=== PATIENT | female | born 1950 | race Caucasian/White ===

== ENCOUNTER → 2020-07-08 06:21 | Outpatient (CLI) | payer MEDICARE, OTHER, SELFPAY ==
[2020-07-08 07:40] LABS: ALB/GLOB Ratio 1.1 RATIO (0.9-2.4); AST(SGOT) 29 U/L (15-37); Alanine Aminotransfer ALT/SGPT 31 U/L (13-56); Albumin, Serum 3.9 g/dL (3.2-5.0); Alkaline Phosphatase 50 U/L (45-117); Anion Gap 6 (5-15); BUN 14 mg/dL (7-18); BUN/Creat Ratio 16.1 RATIO (10-20); Chloride 102 mmol/L (98-107); Creatinine, Serum 0.87 mg/dL (0.55-1.02); EST Glomerular Filtration Rate 68 mL/min (>60); Est Glom Filt Rate - Afr Amer 83 mL/min (>60); Globulin 3.6 g/dL (2.2-4.2); Glucose 120 mg/dL (74-106); Potassium 3.7 mmol/L (3.5-5.1); Protein, Total 7.5 g/dL (6.4-8.2); Sodium Level 140 mmol/L (136-145)
== END ==
DX: C50.919 Malignant neoplasm of unspecified site of unspecified female breast (principal)
CPT/HCPCS: 36415; 80053

== ENCOUNTER → 2020-10-06 12:40 | Outpatient (CLI) | payer MEDICARE, OTHER, SELFPAY ==
--- NOTE | 2020-10-06 12:44 | BI_ITS ---
MAMMOGRAPHY - UNILATERAL SCREENING: LEFT BREAST REASON FOR EXAM: Female, 70 years old. Routine annual screening examination (unilateral). PERTINENT HISTORY: Personal history of breast cancer with right mastectomy. TECHNIQUE: Digital examination. Mediolateral oblique (MLO) and craniocaudad (CC) views of the breast were obtained. CAD: COMPARISON: 03/16/2020 FINDINGS: Breast Composition: There are scattered areas of fibroglandular density. There are no dominant masses or suspicious calcifications. Stable benign-appearing calcifications in the left breast No other significant abnormalities are identified. There has been no significant change since the prior study. BI/SCREEN MAMM (CAD) W/RODRÍGUEZ UNI L IMPRESSION: Stable bilateral screening mammogram. ASSESSMENT CATEGORY: BIRADS Category 2: Benign. A letter regarding these results will be sent to the patient by the facility within 30 days. FOLLOW UP RECOMMENDATION: Yearly follow up mammogram recommended. (A) [id number] Approximately 10% of breast cancers are not detected by mammography. A normal mammogram should not delay biopsy of a clinically suspicious abnormality. [id number] Electronically Signed: Josse Sharma MD at 13:51 EDT , Service support ,
--- NOTE | 2020-10-06 12:56 | BD_ITS ---
STUDY: DUAL ENERGY X-RAY ABSORPTIOMETRY / DXA REASON FOR EXAM: Female, 70 years old. [id number]. The patient is postmenopausal. Loss of height. TECHNIQUE: Bone Mineral Density (BMD) measurements of lumbar spine and bilateral hips were obtained. COMPARISON: None. FINDINGS: Lumbar Spine (L1-L4): g/cm2 (1.150) / T-score (-0.2) / Z-score (1.4) Findings are suggestive of normal bone density with a low fracture risk. Left Femur Total: g/cm2 (0.814) / T-score (-1.5) / Z-score (-0.1) Left Femoral Neck: g/cm2 (0.724) / T-score (-2.3) / Z-score (-0.6) Right Femur Total: g/cm2 (0.813) / T-score (-1.5) / Z-score (-0.1) Right Femoral Neck: g/cm2 (0.769) / T-score (-1.9) / Z-score (-0.2) BD/Dexa Bone Density Study IMPRESSION: The patient is considered osteopenic as outlined below according to World [employer] Organization (WHO) criteria with a high fracture risk. Reference Information: The T-score is the number of standard deviations above or below the standard which is normal for young adults at their peak bone mineral density. The World Health Organization (WHO) interprets the T-scores as follows: Above -1 Normal bone density Between -1 and -2.5 Osteopenia Equal to / or below -2.5 Osteoporosis As a practical clinical guideline, osteopenia may be graded as follows: Mild -1 through -1.5 Moderate -1.6 through -2.0 Severe -2.1 through -2.4 The Z-score is the number of standard deviations above or below age-matched controls. A Z-score of less than -1.5 would be considered abnormal. References: 1. NIH Osteoporosis and Related Bone Diseases www osteo.org 2. International Society for Clinical Densitometry www iscd.org 3. National Osteoporosis Foundation www nof.org Electronically Signed: Bj Howard MD at 12:41 EDT , Service support ,
== END ==
PROVIDERS: PCP Internal Medicine; Referring Provider Internal Medicine; Visit Provider Internal Medicine
DX: Z78.0 Asymptomatic menopausal state (principal); Z12.31 Encounter for screening mammogram for malignant neoplasm of breast; Z85.3 Personal history of malignant neoplasm of breast
CPT/HCPCS: 77063; 77067; 77080

== ENCOUNTER 2021-01-11 22:26 | Emergency (ER) | payer MEDICARE, OTHER, SELFPAY ==
[2021-01-11 22:27] VITALS: BP 143/95; PULSE 60; RESP 18; TEMP 36.6; O2SAT 95; BMI 36.6
--- NOTE | 2021-01-11 22:45 | EX.ED.DYSGE1 ---
HPI History of Present Illness Chief Complaint: Rash Informant: patient and spouse/S.O. Narrative Narrative: 70-year-old female presents to emergency room with a rash. Patient states that last Monday (7 days ago) she was weed whacking and by Monday she had blistery itchy rash on legs and arm chest and neck. She has tried some topical hydrocortisone, topical Benadryl, antiitch spray and nothing seems to be helping her itching. She has been using alcohol baths. PFSH PFSH Allergy/AdvReac Type Severity Reaction Status Date / Time carboplatin Allergy Anaphylaxis Verified 01/11/21 22:30 aspirin AdvReac Other Verified 01/11/21 22:30 NSAIDS (Non-Steroidal AdvReac Other Verified 01/11/21 22:30 Anti-Inflamma PAPER TAPE AdvReac Other Uncoded 01/11/21 22:30 Social History (Updated 01/11/21 @ 22:[address] James Cuadra, DO) Smoking Status: Former smoker substance use type: does not use ROS ROS ED Constitutional Constitutional ED: Denies chills or weight loss Eyes Eyes: Denies change in vision or diplopia ENT ENT ED: Denies ear pain, rhinorrhea or sore throat Cardiovascular Cardiovascular: Denies chest pain, orthopnea, palpitations or racing heartbeat Respiratory/Chest Respiratory/Chest: Denies cough, dyspnea or orthopnea Gastrointestinal Gastrointestinal: Denies abdominal pain, diarrhea, nausea or vomiting Genitourinary Genitourinary ED: Denies dysuria, hematuria or urinary frequency Musculoskeletal Musculoskeletal: Denies arthralgias or myalgias Integumentary Reports rash; Denies abscess Neurologic Neurologic: Denies headache(s) or weakness Psychiatric Psychiatric: Denies anxiety, depression, suicidal ideation or suicidal thoughts Endocrine Endocrinology: Denies polydipsia, polyphagia or polyuria Allergic/Immunologic Allergic/Immunologic ED: Denies mouth swelling, tongue swelling or urticaria EXAM Physical Exam Const Vital Signs: 01/11/21 22:27 Temperature 97.9 F Temperature Source Temporal Pulse Rate 60 Respiratory Rate 18 Blood Pressure 143/95 H Blood Pressure Mean 111 Pulse Ox 95 Oxygen Delivery Method Room Air Positive well nourished and well developed General Appearance ED: well developed HEENT Reports normocephalic, head/scalp atraumatic and moist mucous membranes Eyes PERRL and EOMs intact bilaterally Neck no lymphadenopathy, supple and no JVD Resp normal respiratory effort and clear to auscultation bilaterally Cardio regular rate, regular rhythm and no murmurs GI normal to inspection, nondistended, normoactive bowel sounds and non-tender Palpation: soft Back/Spine no CVA tenderness and normal ROM Extremity normal to inspection General Extremety ED: Negative for edema General Extremity: Negative for edema Neuro oriented x3 and CN's II-XII intact bilaterally Sensorium / Orientation: alert Motor Exam: strength 5/5 throughout Psych mental status grossly normal Mood & Affect: Negative for depressed or tearful Skin no wounds Skin Narrative: Patient has a blistery raised red rash over the lower extremities patchy areas on the arms neck and torso that seems to be consistent with a contact dermatitis MDM MDM MDM Narrative Medical decision making narrative: Patient will receive an IM dose of Kenalog. She also received Benadryl and recommend continued Benadryl. As this is already day 8 I do not think she will need additional oral steroids. Return if worsening or concerns. Discharge Plan Triage Chief Complaint: Rash ED Provider: James Cuadra Dx/Rx/DC Orders Clinical Impression: Contact dermatitis Instructions: ED Contact Dermatitis Primary Care Provider: Juana Villatoro Referrals: Juana Villatoro DO [Primary Care Provider] - As Needed Activity Restrictions/Additional Instructions: Benadryl 25 mg every 6-8 hours depending on how tired you feel on it. Calamine lotion is worth a try to see if it helps you. Disposition Disposition: Home, Self Care
[2021-01-11] MEDS: Triamcinolone Acetonide 40 MG/ML Vial 80 MG IM (22:51)
[2021-01-11] MEDS: DiphenhydrAMINE 25 MG Capsule 50 MG PO (22:52)
== END 2021-01-11 23:04 | disposition home or self-care (01) ==
LOC: ED 22:49
PROVIDERS: Emergency Provider Emergency Medicine; PCP Internal Medicine
DX: L25.9 Unspecified contact dermatitis, unspecified cause (principal); Z87.891 Personal history of nicotine dependence
CPT/HCPCS: 96372; 99284

== ENCOUNTER → 2021-06-07 14:56 | Outpatient (CLI) | payer MEDICARE, OTHER, SELFPAY ==
[2021-06-07 15:37] LABS: International Normalized Ratio 1.5; Prothrombin Time (Protime)PT. 17.2 SECONDS (11.7-14.9)
== END ==
PROVIDERS: PCP Internal Medicine; Visit Provider Internal Medicine
DX: R79.1 Abnormal coagulation profile (principal)
CPT/HCPCS: 85610

== ENCOUNTER → 2021-06-11 06:52 | Outpatient (CLI) | payer MEDICARE, OTHER, SELFPAY ==
--- NOTE | 2021-06-11 06:55 | US_ITS ---
EXAM: US ABDOMEN LIMITED CLINICAL INDICATION: SPLENOMEGALY TECHNIQUE: Real-time ultrasound of the abdomen with image documentation. This report was created using [employer] report generation technology. COMPARISON: None. FINDINGS: KIDNEYS: Visualized left kidney is unremarkable without demonstrated hydronephrosis. The left kidney measures 11.3 x 5.4 x 5.5 cm. SPLEEN: The spleen measures 12.0 x 5.2 x 3.7 cm. No splenic masses. No perisplenic fluid collections. US/Spleen IMPRESSION: Top normal spleen size. No splenic mass. Electronically Signed: Tim Rojas MD ([place]) at 7:55 EST , Service support ,
== END ==
PROVIDERS: PCP Internal Medicine; Referring Provider Internal Medicine; Visit Provider Internal Medicine
DX: R16.1 Splenomegaly, not elsewhere classified (principal)
CPT/HCPCS: 76705

== ENCOUNTER → 2021-11-08 | Outpatient (CLI) | payer MEDICARE, OTHER, SELFPAY ==
--- NOTE | 2021-11-08 07:29 | BI_ITS ---
MAMMOGRAPHY - UNILATERAL SCREENING: LEFT BREAST REASON FOR EXAM: Female, 71 years old. Routine annual screening examination (unilateral). PERTINENT HISTORY: Personal history of breast cancer. Prior right mastectomy. TECHNIQUE: Digital unilateral breast rodríguez (3D mammographic acquisition) in the CC and MLO projections. 2-D mediolateral oblique (MLO) and craniocaudad (CC) views of both breasts were obtained. CAD: Full Field Digital Mammography with Computer Added Detection was performed. COMPARISON: Comparison is made with prior study dated 10/06/2020. FINDINGS: Breast Composition: There are scattered areas of fibroglandular density. There are no dominant masses or suspicious calcifications. Stable benign-appearing calcifications in the left breast. No other significant abnormalities are identified. There has been no significant change since the prior study. BI/SCREEN MAMM (CAD) W/RODRÍGUEZ UNI L IMPRESSION: Stable unilateral screening mammogram. Yearly follow-up mammogram recommended. (A) ASSESSMENT CATEGORY: BIRADS Category 2: Benign. A letter regarding these results will be sent to the patient by the facility within 30 days. Approximately 10% of breast cancers are not detected by mammography. A normal mammogram should not delay biopsy of a clinically suspicious abnormality. [id number] Electronically Signed: Bj Howard MD at 9:06 EDT ,
== END | disposition home or self-care (01) ==
LOC: OPBI 07:28
PROVIDERS: PCP Internal Medicine; Visit Provider Internal Medicine
DX: Z12.31 Encounter for screening mammogram for malignant neoplasm of breast (principal)
CPT/HCPCS: 77063; 77067

== ENCOUNTER → 2022-02-09 | Outpatient (CLI) | payer MEDICARE, OTHER, SELFPAY ==
--- NOTE | 2022-02-09 11:42 | RAD_ITS ---
HISTORY: PAIN. TECHNIQUE: XR Hip Unilateral with Pelvis when performed; 2-3 Views. COMPARISON: None. FINDINGS: OSSEOUS STRUCTURES: No acute displaced fracture identified. Note that overlapping bowel shadows may obscure osseous detail. Mineralization unremarkable. JOINT SPACES: No dislocation. Mild degenerative changes. SOFT TISSUES: Moderate stool in the colon. . RAD/HIP, UNI W/ Pelvis 2-3 Views IMPRESSION: No acute displaced fracture or dislocation identified. Electronically Signed: Charlene Nascimento MD at 15:18 EDT ,
== END | disposition home or self-care (01) ==
PROVIDERS: PCP Internal Medicine
DX: M25.551 Pain in right hip (principal); D05.11 Intraductal carcinoma in situ of right breast
CPT/HCPCS: 73502

== ENCOUNTER → 2022-02-28 | Outpatient (CLI) | payer MEDICARE, OTHER, SELFPAY ==
--- NOTE | 2022-02-28 09:18 | RAD_ITS ---
STUDY: X-RAY - ESOPHAGUS (BARIUM SWALLOW) WITH FLUOROSCOPY REASON FOR EXAM: Female, 71 years old. DYSPHAGIA TECHNIQUE: 14 view(s) of the esophagus were obtained following swallowing of barium. FLUOROSCOPY TIME (if supplied): (25) minutes/seconds COMPARISON: None. FINDINGS: There is no demonstrated esophageal foreign body. There is no demonstrated stricture or mucosal abnormality. Normal gastroesophageal junction, without a demonstrated hiatal hernia. The patient ingested a 12 mm tablet of barium without any difficulty. There is atherosclerotic tortuosity of the aortic arch and descending thoracic aorta. Normal visualized pulmonary parenchyma. Normal visualized osseous structures of the thorax. RAD/Esophagus Single Contrast IMPRESSION: Normal plain film x-ray examination (barium swallow) of the esophagus. Electronically Signed: Bj Howard MD at 9:56 EDT ,
== END | disposition home or self-care (01) ==
LOC: RAD 09:10
PROVIDERS: PCP Internal Medicine; Referring Provider Internal Medicine; Visit Provider Internal Medicine
DX: R13.10 Dysphagia, unspecified (principal)
CPT/HCPCS: 74220

== ENCOUNTER 2022-03-15 07:30 | Outpatient (RCR) | payer MEDICARE, OTHER, SELFPAY ==
--- NOTE | 2022-02-25 10:00 | HP.PTEVAL_ITS ---
Patient's Visit Information PAM CURRY is a 71 year old F referred to Physical Therapy by Dr. Juana Villatoro DO with a diagnosis of Piriformis syndrome/sciatica. Date of Evaluation: 02/25/22 Physical Therapist: RUPA Carson - Visit Plan Frequency: 1x/Week Duration: 3 Weeks Plan: 1X/ week for 3 weeks for strengthening of B ankles, stretching of R IT BAND and Piriformis, neutral spine core stability, foam rolling if needed with HEP. HEP: standing heel and toe raises, Bridges, seated piriformis stretch - Subjective Pt has pain in R hip and radiates down the back of the leg and the side and when she walks her R ankle will give out. Sit to stand sometimes it takes a minute to get her feet under her before she walks cause it will give out. She walks 2- 4 miles a day and takes move free to help with her moving better and takes Arthritis Tylenol when it is painful and does not use that everyday. She has no N&T. She has osteopenia in her pelvic bone and on a cancer med that is hard on her bones due to masectomy... She can not sleep on her R side. Steps: she can but it fatigues quick. In the afternoon she is going up one step at a time but can recip when not in a lot of pain. She had an X-ray that showed mild arthritis in the R hip. She has no back pain. The longer she walks the better she is. Sit to stand: no pain with doing that. If she sits a long time she stands and then pain comes on and has to stand a little to make the pain subside and then she can walk. She can sit as long as she wants. In the Winter she sits and quilts 6-7 hours and it has steadily gotten worse since the winter. - Pain R hip pain Pain Intensity (Out of 10): 1 R buttock pain Pain Intensity (Out of 10): 2 - Objective Gait: Walks with decrease stance time on the R LE. Pt is able to walk on heels and toes but feel the weakness and slight pain in the R ankle. Trunk AROM: flex 100%. Ext 50%, SB L (increase pain) 50%, SB R 50%, Rot B 25%. Patella DTR's 2+/3. LE MMT: R hip flex 10.8# and L hip flex 12.4#. R knee ext 17.3# and L knee ext 18.8#. R knee flex 15# and L knee flex 14.1#. R hip abd 12.5# L hip abd 12.5#. DF R 17.3# and L 23.1#. Increase pain with piriformis stretch on the R into the buttocks and the L-spine on the R side. No pain on the L side. IT Band was tight on the R and could not test the L cause the patient could not lay on the R side long. +SLR on the R .... after piriformis stretching on the R 30 sec X 4 her R SLR was negative for pain just stretching. - Balance/Special Test Scores Oswestry Low Back Score: 7 - Rehabilitation Potential Rehabilitation Potential: Good - Anticipated Interventions Patient/Client Instruction: Educate patient on: Condition, Plan of Care For the Purpose of:: To decrease pain, To decrease swelling/inflammation, To increase ROM, To improve nutrient delivery to tissue, To improve muscle performance and motor function, To improve ability to perform ADL's, To increase tolerance to activity/condition/position, To improve performance and independence with ADL's, To improve ability of physical actions for home/community/work/leisure, To improve gait and locomotor functions, To improve health of tissue, To decrease soft tissue restriction, To increase flexibility/ROM Therapeutic Exercise to Include: Strength training, Endurance training, Balance training, Coordination, Body mechanics, Postural training, Flexibilty training, Gait and locomotor training, Neuromotor development, Passive ROM, Active ROM, Dynamic Lumbar Stabilization For the Purpose of:: To decrease pain, To increase ROM, To improve nutrient delivery to tissue, To increase oxygenation perfusion, To improve muscle performance and motor function, To improve ability to perform ADL's, To increase tolerance to activity/condition/position, To improve performance and independence with ADL's, To decrease level of supervision to perform tasks, To improve ability of physical actions for home/community/work/leisure, To improve gait and locomotor functions, To improve health of tissue, To decrease soft tissue restriction, To increase flexibility/ROM, To improve balance Manual Therapy Techniques to Include: Passive ROM, Soft tissue mobilization For the Purpose of:: To decrease swelling/inflammation, To increase ROM, To improve nutrient delivery to tissue, To improve muscle performance and motor function Cryotherapy (ice pack, ice massage): Yes Thermo therapy (hot pack): Yes Ultrasound (thermal/non thermal): Yes For the Purpose of:: To decrease pain, To increase ROM, To improve nutrient delivery to tissue, To increase oxygenation perfusion, To improve muscle performance and motor function, To improve ability to perform ADL's Thank you for the opportunity to evaluate your patient. For Medicare and Medicare HMO plans, please review the plan of care and approve it. It will need to be FAXED BACK to us at [phone] for Medicare purposes. For Medicare only, by signing this I certify the plan of care. Please let me know if there are questions or concerns regarding this plan of care. Physician Signature: Date:
--- NOTE | 2022-03-15 07:58 | HP.PTEVAL_ITS ---
Patient's Visit Information PAM CURRY is a 71 year old F referred to Physical Therapy by Dr. Juana Villatoro DO with a diagnosis of Piriformis syndrome/sciatica. Date of Evaluation: 02/25/22 Physical Therapist: RUPA Carson - Visit Plan Frequency: 1x/Week Duration: 3 Weeks Plan: DC PT to HEP - Subjective Pt has pain in R hip and radiates down the back of the leg and the side and when she walks her R ankle will give out. Sit to stand sometimes it takes a minute to get her feet under her before she walks cause it will give out. She walks 2- 4 miles a day and takes move free to help with her moving better and takes A rthritis Tylenol when it is painful and does not use that everyday. She has no N&T. She has osteopenia in her pelvic bone and on a cancer med that is hard on her bones due to masectomy... She can not sleep on her R side. Steps: she can but it fatigues quick. In the afternoon she is going up one step at a time but can recip when not in a lot of pain. She had an X-ray that showed mild arthrit is in the R hip. She has no back pain. The longer she walks the better she is. Sit to stand: no pain with doing that. If she sits a long time she stands and then pain comes on and has to stand a little to make the pain subside and then she can walk. She can sit as long as she wants. In the Winter she sits and quilts 6-7 hours and it has steadily gotten worse since the winter. - Pain R hip pain Pain Intensity (Out of 10): 0 R buttock pain Pain Intensity (Out of 10): 0 - Objective Gait: Walks with decrease stance time on the R LE. Pt is able to walk on heels and toes but feel the weakness and slight pain in the R ankle. Trunk AROM: flex 100%. Ext 50%, SB L (increase pain) 50%, SB R 50%, Rot B 25%. Patella DTR's 2+/3. LE MMT: R hip flex 10.8# and L hip flex 12.4#. R knee ext 17.3# and L knee ext 18.8#. R knee flex 15# and L knee flex 14.1#. R hip abd 12.5# L hip abd 12.5#. DF R 17.3# and L 23.1#. Increase pain with piriformis stretch on the R into the buttocks and the L-spine on the R side. No pain on the L side. IT Band was tight on the R and could not test the L cause the patient could not lay on the R side long. +SLR on the R .... after piriformis stretching on the R 30 sec X 4 her R SLR was negative for pain just stretching. - Balance/Special Test Scores Oswestry Low Back Score: 0 - Goals Goal 1:: I HEP Goal 2:: Decrease pain to less than 2/10 Goal 3:: Resume walking - Rehabilitation Potential Rehabilitation Potential: Good - Anticipated Interventions Patient/Client Instruction: Educate patient on: Condition, Plan of Care For the Purpose of:: To decrease pain, To decrease swelling/inflammation, To increase ROM, To improve nutrient delivery to tissue, To improve muscle performance and motor function, To improve ability to perform ADL's, To increase tolerance to activity/condition/position, To improve performance and independence with ADL's, To improve ability of physical actions for home/community/work/leisure, To improve gait and locomotor functions, To improve health of tissue, To decrease soft tissue restriction, To increase flexibility/ROM Therapeutic Exercise to Include: Strength training, Endurance training, Balance training, Coordination, Body mechanics, Postural training, Flexibilty training, Gait and locomotor training, Neuromotor development, Passive ROM, Active ROM, Dynamic Lumbar Stabilization For the Purpose of:: To decrease pain, To increase ROM, To improve nutrient delivery to tissue, To increase oxygenation perfusion, To improve muscle performance and motor function, To improve ability to perform ADL's, To increase tolerance to activity/condition/position, To improve performance and independence with ADL's, To decrease level of supervision to perform tasks, To improve ability of physical actions for home/community/work/leisure, To improve gait and locomotor functions, To improve health of tissue, To decrease soft tissue restriction, To increase flexibility/ROM, To improve balance Manual Therapy Techniques to Include: Passive ROM, Soft tissue mobilization For the Purpose of:: To decrease swelling/inflammation, To increase ROM, To improve nutrient delivery to tissue, To improve muscle performance and motor function Cryotherapy (ice pack, ice massage): Yes Thermo therapy (hot pack): Yes Ultrasound (thermal/non thermal): Yes For the Purpose of:: To decrease pain, To increase ROM, To improve nutrient delivery to tissue, To increase oxygenation perfusion, To improve muscle performance and motor function, To improve ability to perform ADL's Thank you for the opportunity to evaluate your patient. For Medicare and Medicare HMO plans, please review the plan of care and approve it. It will need to be FAXED BACK to us at [phone] for Medicare purposes. For Medicare only, by signing this I certify the plan of care. Please let me know if there are questions or concerns regarding this plan of care. Physician Signature: Date:
--- NOTE | 2022-06-20 08:41 | HP.PTDCSUM ---
It has been my pleasure to treat PAM CURRY referred by Dr. Juana Villatoro DO, with the diagnosis of Piriformis syndrome/sciatica for a total of 4 visit(s). Discharge Date: 03/15/22 Please see the following information for a summary of their discharge status. Subjective: Pt reports that she does not have the pain like she did. When she gets the pain the stretches help relieve it. R hip pain Pain Intensity (Out of 10): 0 R buttock pain Pain Intensity (Out of 10): 0 % Improvement: 80 Objective/Function: Pt has full understanding of HEP and has blue band (PT, PT wit hip march, bridges, supine hip abd with blue band, clam shells with blue band, seated piriformis stretch, foam roll to IT band with husbands help) Goal 1:: I HEP Goal Progress: Goal Met Goal 2:: Decrease pain to less than 2/10 Goal Progress: Goal Met Goal 3:: Resume walking Goal Progress: Goal Met Plan: DC PT to HEP Discharge Comments: DC PT to HEP If there are questions or concerns regarding this patient's physical therapy, please feel free to call me at [phone]. Thank you for the referral of this patient. Sincerely, Kaykay Delacruz, MPT Balance/Gait/Functional tests - Balance/Special Test Scores Oswestry Low Back Score: 0
== END 2022-03-15 19:00 | disposition home or self-care (01) ==
LOC: PT 07:30
PROVIDERS: PCP Internal Medicine; Referring Provider Internal Medicine; Visit Provider Internal Medicine
DX: G57.01 Lesion of sciatic nerve, right lower limb (principal); M54.31 Sciatica, right side
CPT/HCPCS: 97110; 97161

== ENCOUNTER 2022-07-11 05:21 | Day surgery (SDC) | payer MEDICARE, OTHER, SELFPAY ==
--- NOTE | 2022-07-11 | EGD_PTH ---
PATIENT: PAM CURRY LOC: EN U#:[id number] AGE/SX: 71/F ROOM: RE07/11/[address]: Dr. Jb Sevilla DO : 1950 BED: DIS: 07/11/2022 SPEC #: [id number] RECD: 07/11/22 13:50 STATUS: YULI RETyler #: [id number] MARY: 07/11/22 00:[address]: Jb Sevilla DEPT: SURGICAL PATHOLOGY RECD BY: Gerardo May ENTERED: 07/11/22 13:50 SP TYPE: EGD BIOPSY RED DR: Dr. Juana Villatoro DO Tissues: A - Gastric mucous membrane B - Esophageal mucous membrane Procedures: Special Stain Group II Surgery Specimen Level IV Alcian Blue/PAS (control) HEADER OPERATION: EGD ([facility] [place] with biopsies and dilatation PRE-OP DIAGNOSIS: Dysphagia TISSUE SUBMITTED: A ? Anastomosis biopsy, B ? Distal esophagus biopsy MICROSCOPIC DIAGNOSIS A. Anastomotic site, biopsy: Fragments of gastric and small bowel mucosa with mild chronic inflammation. B. Distal esophagus, biopsy: Gastroesophageal junctional mucosa with mild chronic inflammation. No evidence of goblet cell metaplasia. See comment. AM:tatyana 07/12/2022 COMMENT B. Alcian blue/PAS stain with matched control supports the above diagnosis. MICROSCOPIC DESCRIPTION Slides are reviewed. GROSS DESCRIPTION A - Received in fixative is one container labeled with the patient's name and designated anastomosis biopsy. The specimen consists of multiple irregular fragments of light gómez soft tissue that in aggregate measure 1.5 x 0.2 x 0.1 cm. The specimen is totally submitted in one cassette. B - Received in fixative is one container labeled with the patient's name and designated distal esophagus biopsy. The specimen consists of two irregular fragments of light gómez soft tissue that in aggregate measure 0.4 x 0.3 x 0.1 cm. The specimen is totally submitted in one cassette. / SJ:tatyana 07/11/2022 TC:3 CPT: 90316 x2, 47542
[2022-07-11] MEDS: Lactated Ringers 1,000 ML 15 ML IV (05:50)
[2022-07-11 05:55] LABS: INR Fingerstick 1.3; Prothrombin Time Fingerstick 15.5 SEC (11.7-14.9)
[2022-07-11 06:03] VITALS: BP 115/80; PULSE 50; RESP 17; TEMP 36.4; O2SAT 100; BMI 32.5
--- NOTE | 2022-07-11 06:30 | PCM.HP.BLA ---
History and Physical Date of Admission: 07/11/22 PAM CURRY, is a 71 F who presents to the office today to establish for dysphagia x 10 yrs which is getting worse. Hx Soraya en Y in 2006, she lost approx 200 lbs. Especially difficult to swallow meat even when cut up small and in liquid such as gravy, as well as rice and noodles, has to cough until the food is expelled. For example, last week she ate hamburger; it felt stuck in mid esophagus until she forced herself to vomit it up 8 hours later. Gets pain in chest then but not otherwise. No feeling of esophageal spasms. Recent CP after eating popcorn, improved after drinking water, felt like the piece of popcorn passed then. No nausea or vomiting. No heartburn, acid reflux. Has constipation on [employer] weight loss plan, takes miralax. No melena or hematochezia. 02/28/22 esophagram: normal ROS Const Constitutional: Positive for fatigue ENT ENT: No difficulty swallowing Gastro GI: No abdominal pain, belching, bloating, change in bowel habits, change in stool character, coffee ground emesis, constipation, cramping, diarrhea, heartburn, difficulty swallowing, feeling full early, excessive flatus, incontinent of stools, Vomiting blood/hematemesis, Blood in stool, loose stools, Black,tarry stools, nausea/dyspepsia, pain with swallowing, vomiting or other Musc Musculoskeletal: No joint pain Skin Skin: No yellowing of the eye or itchy eyes Psych Psychiatric: No anxiety and No depression Endo Endocrine: Positive for fatigue Aller/Imm Allergy/Immunologic: No itchy eyes Luis Alberto/Lymp Hematologic/Lymphatic: Positive for easy bruising; No easy bleeding Exam Const General: cooperative, healthy appearing and comfortable Orientation: alert, awake and oriented x3 HENMT Head: normal to inspection Eyes General: appearance normal, both eyes and all related structures Resp Effort & Inspection: normal respiratory effort GI Inspection: normal to inspection Quality Reporting Tobacco Screening ([facility]) Smoking Status: Former smoker Assessment and Plan Assessment and Plan (1) Dysphagia: ?Plan: 71 yo female with dysphagia; will schedule EGD to eval for esophageal stricture/stenosis, reflux esophagitis, Cain's; office f/u 2 wks later to review biopsy results. She is on warfarin for atrial fibrillation, managed by Dr Shauna I have examined the patient and the H&P has been reviewed. There are no clinical changes since date of exam.
[2022-07-11 06:51] VITALS: BP 115/80; BP 118/74; PULSE 68; RESP 18; TEMP 36.1; O2SAT 94
--- NOTE | 2022-07-11 06:58 | OP.EGD_ITS ---
Patient Name: Charlotte Crowley Procedure Date: 07/11/2022 6:28 AM Date of : 1950 Age: 71 Procedure: Upper GI endoscopy Indications: Dysphagia Providers: Jb Sevilla DO Medicines: Monitored Anesthesia Care Patient Profile: This is a 71 year old female. Refer to note in patient chart for documentation of history and physical. Patient has symptoms of chronic dysphagia. Complications: No immediate complications. Procedure: Pre-Anesthesia Assessment: - Prior to the procedure, a History and Physical was performed, and patient medications and allergies were reviewed. The risks and benefits of the procedure and the sedation options and risks were discussed with the patient. All questions were answered and informed consent was obtained. Patient identification and proposed procedure were verified by the physician. Mental Status Examination: normal. Prophylactic Antibiotics: The patient does not require prophylactic antibiotics. Prior Anticoagulants: The patient has taken no previous anticoagulant or antiplatelet agents. ASA Grade Assessment: II - A patient with mild systemic disease. After reviewing the risks and benefits, the patient was deemed in satisfactory condition to undergo the procedure. The anesthesia plan was to use monitored anesthesia care (MAC). Immediately prior to administration of medications, the patient was re-assessed for adequacy to receive sedatives. The heart rate, respiratory rate, oxygen saturations, blood pressure, adequacy of pulmonary ventilation, and response to care were monitored throughout the procedure. The physical status of the patient was re-assessed after the procedure. After obtaining informed consent, the endoscope was passed under direct vision. Throughout the procedure, the patient's blood pressure, pulse, and oxygen saturations were monitored continuously. The gastroscope was introduced through the mouth, and advanced to the mid-jejunum. The upper GI endoscopy was accomplished without difficulty. The patient tolerated the procedure well. Scope In: 6:40:15 AM Scope Out: 6:46:23 AM Total Procedure Duration Time 0 hours 6 minutes 8 seconds Findings: A moderate Schatzki ring was found in the upper third of the esophagus. A guidewire was placed and the scope was withdrawn. Dilation was performed with a Savary dilator with no resistance at 60 Fr. The dilation site was examined and showed moderate improvement in luminal narrowing. Estimated blood loss was minimal. The Z-line was irregular and was found 38 cm from the incisors. Biopsies were taken with a cold forceps for histology. Verification of patient identification for the specimen was done. Estimated blood loss was minimal. Evidence of a Soraya-en-Y gastrojejunostomy was found. The gastrojejunal anastomosis was characterized by healthy appearing mucosa. This was traversed. The ygbuh-th-vxjisui limb was characterized by healthy appearing mucosa. The jejunojejunal anastomosis was characterized by healthy appearing mucosa. The ohujylaj-nh-kjmyogd limb was not examined as it could not be found. Biopsies were taken with a cold forceps for histology. Verification of patient identification for the specimen was done. Estimated blood loss was minimal. The examined jejunum was normal. The middle third of the esophagus was moderately tortuous. Impression: - Moderate Schatzki ring. Dilated. - Z-line irregular, 38 cm from the incisors. Biopsied. - Soraya-en-Y gastrojejunostomy with gastrojejunal anastomosis characterized by healthy appearing mucosa. Biopsied. - Normal examined jejunum. Recommendation: - Discharge patient to home. - Resume previous diet. - Continue present medications. - Await pathology results. Procedure Code(s): --- Professional --- 98367, Esophagogastroduodenoscopy, flexible, transoral; with insertion of guide wire followed by passage of dilator(s) through esophagus over guide wire 25445, 59, Esophagogastroduodenoscopy, flexible, transoral; with biopsy, single or multiple CPT copyright 2017 [employer]. All rights reserved. The codes documented in this report are preliminary and upon evaporative cooler installer review may be revised to meet current compliance requirements. Jb Sevilla DO 07/11/2022 6:57:25 AM This report has been signed electronically. Number of Addenda: 0 Note Initiated On: 07/11/2022 6:28 AM
--- NOTE | 2022-07-11 06:58 | OP.CCLET_ITS ---
07/11/2022 Juana Villatoro [address] [place] [address] Re : Upper GI endoscopy procedure for Charlotte Crowley Dear Dr. Villatoro This procedure was performed on Monday, July 11, 2022. My impressions and recommendations are as follows: Impressions : - Moderate Schatzki ring. Dilated. - Z-line irregular, 38 cm from the incisors. Biopsied. - Soraya-en-Y gastrojejunostomy with gastrojejunal anastomosis characterized by healthy appearing mucosa. Biopsied. - Normal examined jejunum. Recommendations : - Discharge patient to home. - Resume previous diet. - Continue present medications. - Await pathology results. My findings are described in the full procedure note, which is enclosed. If I can be of further assistance, please feel free to contact me at . Sincerely, Jb Sevilla, 07/11/2022 6:57:25 AM This report has been signed electronically.
[2022-07-11 06:59] VITALS: BP 111/73; BP 115/80; PULSE 65; RESP 18; O2SAT 96
[2022-07-11 07:05] VITALS: BP 115/80; BP 122/76; PULSE 57; RESP 18; O2SAT 95
[2022-07-11 07:08] VITALS: BP 115/80; BP 123/66; PULSE 57; RESP 18; TEMP 36; O2SAT 96
[2022-07-11 07:32] VITALS: BP 115/80
== END 2022-07-11 07:42 | disposition home or self-care (01) ==
LOC: EN 05:24 → AC 05:26
PROVIDERS: PCP Internal Medicine; Referring Provider Internal Medicine; Visit Provider Internal Medicine Gastroenterology
PROC: 0DJ08ZZ Inspection of Upper Intestinal Tract, Via Natural or Artificial Opening Endoscopic (ICD-10-PCS; CPT 43235; principal; 2022-07-11 06:25)
DX: K22.2 Esophageal obstruction (principal); I48.91 Unspecified atrial fibrillation; K59.00 Constipation, unspecified; E78.00 Pure hypercholesterolemia, unspecified; Z98.0 Intestinal bypass and anastomosis status; Z90.49 Acquired absence of other specified parts of digestive tract; Z79.01 Long term (current) use of anticoagulants; Z79.899 Other long term (current) drug therapy; Z87.891 Personal history of nicotine dependence
CPT/HCPCS: 43248; 43239; 36416; 85610; 88305; 88313; C1769; J2405

== ENCOUNTER 2022-09-14 06:36 | Day surgery (SDC) | payer MEDICARE, OTHER, SELFPAY ==
[2022-09-14 07:10] LABS: INR Fingerstick 1.5; Prothrombin Time Fingerstick 17.9 SEC (11.7-14.9)
--- NOTE | 2022-09-14 07:10 | PCM.HP.STD ---
[facility] - General General Date of Admission: 09/14/22 Date of Service: 09/14/22 Chief Complaint: Screening colonoscopy HPI Tj CURRY, is a 72 F who presents today for screening colonoscopy. She has a past medical history of this for following gastric bypass. She also past medical history of gastroesophageal reflux disease, atrial fibrillation on warfarin and digoxin them. She is not having any chest pain or shortness of breath. She does not have any nausea. She not have any weakness or dizziness. Overall she is in very good health. [facility] Medical History (Updated 09/01/22 @ 16:14 by Charisma Brown) Afib Arthritis Cancer Chest pain CPAP (continuous positive airway pressure) dependence Dysphagia Fatigue Former smoker High cholesterol History of edema History of stress test Hypercalcemia Hyperglycemia nursing home (current) use of anticoagulants Migraine headache Osteopenia Ovarian cancer Piriformis syndrome of right side Sciatica, right side Splenomegaly Wears dentures Wears hearing aid Weight gain Home Medications alendronate 70 mg tablet 70 mg PO QWEEK 03/03/22 [History Last Taken Unknown] anastrozole 1 mg tablet 1 mg PO DAILY 03/03/22 [History Last Taken Unknown] cholecalciferol (vitamin D3) 25 mcg (1,000 unit) capsule 25 mcg PO DAILY 03/03/22 [History Last Taken Unknown] coenzyme Q10 400 mg capsule 400 mg PO DAILY 03/03/22 [History Last Taken Unknown] digoxin 250 mcg (0.25 mg) tablet 250 mcg PO DAILY 03/03/22 [History Last Taken Unknown] magnesium 250 mg tablet 250 mg PO DAILY 03/03/22 [History Last Taken Unknown] warfarin 1 mg tablet 10 mg PO SUTUWETHSA 03/03/22 [History Last Taken Unknown] pantoprazole 40 mg tablet,delayed release 40 mg PO BID #180 tabs 07/27/22 [Rx Last Taken Unknown] calcium carbonate 600 mg-vitamin D3 20 mcg (800 unit) chewable tablet (Caltrate 600 plus D) 1 tab PO DAILY 09/01/22 [History Last Taken Unknown] mecobalamin (vitamin B12) 5,000 mcg disintegrating tablet 5,000 mcg PO DAILY 09/01/22 [History Last Taken Unknown] omega-3 fatty acids-fish oil 360 mg-1,200 mg capsule (Fish Oil) 1 cap PO DAILY 09/01/22 [History Last Taken Unknown] polyethylene glycol 3350 17 gram/dose oral powder (ClearLax) 4 g PO DAILY 09/01/22 [History Last Taken Unknown] prenat.vits,manisha,mgr-rape-tatev 1 tab PO DAILY 09/01/22 [History Last Taken Unknown] warfarin 5 mg tablet 9 mg PO MOFR 09/01/22 [History Last Taken Unknown] zinc gluconate 30 mg tablet 30 mg PO DAILY 09/01/22 [History Last Taken Unknown] oxybutynin chloride 10 mg tablet,extended release 24 hr 10 mg PO DAILY 09/07/22 [History Last Taken Unknown] Allergy/AdvReac Type Severity Reaction Status Date / Time carboplatin Allergy Anaphylaxis Verified 09/01/22 16:16 adhesive tape AdvReac Other Verified 09/07/22 09:32 aspirin AdvReac Other Verified 09/01/22 16:16 NSAIDS (Non-Steroidal AdvReac Other Verified 09/01/22 16:16 Anti-Inflamma Family History Father Diabetes Gastric ulcer TIA (transient ischemic attack) Hypertension Heart disease Mother Cancer Surgical History (Updated 09/07/22 @ 09:39 by Bambi Pro) Bariatric surgery status H/O bladder repair surgery History of appendectomy History of colonoscopy History of esophagogastroduodenoscopy (EGD) History of hernia repair History of right mastectomy Hx of cholecystectomy S/P complete hysterectomy Social History (Updated 09/01/22 @ 16:15 by Charisma Brown) household members: spouse Smoking Status: Former smoker substance use type: does not use Physical Exam Const alert General Appearance: cooperative Orientation / Consciousness: oriented to person HEENT hearing grossly normal bilaterally Head and Scalp: normal to inspection Face and Sinus: face symmetric Nose: external nose normal Mouth: oral and palatal mucosa normal Eyes conjunctivae normal General Eye: normal appearance of both eyes Neck full ROM General: normal visual inspection Lymph Lymphatic: no lymphadenopathy noted Chest inspection of chest normal and palpation of chest normal Chest: symmetrical chest wall rise Resp normal respiratory effort Effort and Inspection: able to speak in complete sentences Cardio regular rate GI non-distended Percussion: normal to percussion Rectal Exam: deferred Neuro Speech: speech normal Gait (Neuro): normal gait Results Lab / Micro Data Labs: Laboratory Results - last 24 hr 09/14/22 07:06: POC PT 17.9 H, INR 1.5 Assessment & Plan Assessment/Plan (1) Encounter for screening for malignant neoplasm of colon: PLAN: She was explained alternatives, risk, benefits including not withstanding bleeding, infection, sepsis, perforation, need for mergers or to . She have an ASA of 2.
[2022-09-14] MEDS: Lactated Ringers 1,000 ML 15 ML IV (07:16)
[2022-09-14 07:17] VITALS: BP 114/80; PULSE 60; RESP 18; TEMP 36.7; O2SAT 98; BMI 31.6
--- NOTE | 2022-09-14 08:00 | COLBX_PTH ---
PATIENT: PAM CURRY LOC: EN U#:[id number] AGE/SX: 72/F ROOM: RE09/14/[address]: Dr. Jb Sevilla DO : 1950 BED: DIS: 09/14/2022 SPEC #: [id number] RECD: 09/14/22 10:27 STATUS: YULI CHUCK #: [id number] MARY: 09/14/22 08:[address]: Jb Sevilla DEPT: SURGICAL PATHOLOGY RECD BY: Aries Yarbrough ENTERED: 09/14/22 11:13 SP TYPE: COLON BX OTHR DR: Dr. Juana Villatoro DO Tissues: A - Gastric mucous membrane B - Descending colon C - Sigmoid colon biopsy Procedures: Surgery Specimen Level IV HEADER OPERATION: Colonoscopy ? open access (MAC) with biopsies PRE-OP DIAGNOSIS: Screening TISSUE SUBMITTED: A ? Hepatic flexure polyp biopsy, B ? Descending colon polyp biopsy, C ? Sigmoid polyp biopsy MICROSCOPIC DIAGNOSIS A. Hepatic flexure polyp, biopsy: Fragments of tubular adenoma. B. Descending colon polyp, biopsy: Fragments of tubular adenoma. C. Sigmoid polyp, biopsy: Tubular adenoma. Additional fragments of colonic mucosa with hyperplastic changes. CAMMIE:tatyana 09/15/2022 MICROSCOPIC DESCRIPTION Slides are reviewed. GROSS DESCRIPTION A - Received in fixative is one container labeled with the patient's name and designated hepatic flexure polyp. The specimen consists of multiple irregular fragments of light gómez soft tissue that in aggregate measure 0.8 x 0.4 x 0.1 cm. The specimen is totally submitted in one cassette. B - Received in fixative is one container labeled with the patient's name and designated descending colon polyp biopsy. The specimen consists of multiple irregular fragments of light gómez soft tissue that in aggregate measure 0.8 x 0.3 x 0.1 cm. The specimen is totally submitted in one cassette. C - Received in fixative is one container labeled with the patient's name and designated sigmoid polyp biopsy. The specimen consists of multiple irregular fragments of light gómez soft tissue that in aggregate measure 1.0 x 0.3 x 0.1 cm. The specimen is totally submitted in one cassette. / CAMMIE:tatyana 09/14/2022 TC:1 CPT: 57271 x3
[2022-09-14 08:53] VITALS: BP 103/62; BP 114/80; PULSE 55; RESP 18; TEMP 36.6; O2SAT 96
--- NOTE | 2022-09-14 08:56 | OP.COLON_ITS ---
Patient Name: Charlotte Crowley Procedure Date: 09/14/2022 8:16 AM Date of : 1950 Age: 72 Procedure: Colonoscopy Indications: Screening for colorectal malignant neoplasm Providers: Jb Sevilla DO Medicines: Monitored Anesthesia Care Patient Profile: This is a 72 year old female. Refer to note in patient chart for documentation of history and physical. Last Colonoscopy: several years ago. Complications: No immediate complications. Procedure: Pre-Anesthesia Assessment: - Prior to the procedure, a History and Physical was performed, and patient medications and allergies were reviewed. The patient is competent. The risks and benefits of the procedure and the sedation options and risks were discussed with the patient. All questions were answered and informed consent was obtained. Patient identification and proposed procedure were verified by the physician in the pre-procedure area. Mental Status Examination: alert and oriented. Airway Examination: normal oropharyngeal airway and neck mobility. Respiratory Examination: clear to auscultation. CV Examination: normal. Prophylactic Antibiotics: The patient does not require prophylactic antibiotics. Prior Anticoagulants: The patient has taken no previous anticoagulant or antiplatelet agents. ASA Grade Assessment: II - A patient with mild systemic disease. After reviewing the risks and benefits, the patient was deemed in satisfactory condition to undergo the procedure. The anesthesia plan was to use monitored anesthesia care (MAC). Immediately prior to administration of medications, the patient was re-assessed for adequacy to receive sedatives. The heart rate, respiratory rate, oxygen saturations, blood pressure, adequacy of pulmonary ventilation, and response to care were monitored throughout the procedure. The physical status of the patient was re-assessed after the procedure. After I obtained informed consent, the scope was passed under direct vision. Throughout the procedure, the patient's blood pressure, pulse, and oxygen saturations were monitored continuously. The pediatric colonoscope was introduced through the anus and advanced to the cecum, identified by appendiceal orifice and ileocecal valve. The colonoscopy was performed without difficulty. The patient tolerated the procedure well. The quality of the bowel preparation was adequate. Scope In: 8:26:32 AM Scope Withdrawal Time 0 hours 12 minutes 18 seconds Scope Out: 8:49:01 AM Total Procedure Duration Time 0 hours 22 minutes 29 seconds Findings: The perianal and digital rectal examinations were normal. Non-bleeding external and internal hemorrhoids were found during retroflexion. The hemorrhoids were Grade II (internal hemorrhoids that prolapse but reduce spontaneously). A few small-mouthed diverticula were found in the recto-sigmoid colon and sigmoid colon. Four sessile polyps were found in the sigmoid colon, descending colon and hepatic flexure. The polyps were 1 to 2 mm in size. These polyps were removed with a cold snare. Resection and retrieval were complete. Verification of patient identification for the specimen was done. Estimated blood loss was minimal. Impression: - Non-bleeding external and internal hemorrhoids. - Diverticulosis in the recto-sigmoid colon and in the sigmoid colon. - Four 1 to 2 mm polyps in the sigmoid colon, in the descending colon and at the hepatic flexure, removed with a cold snare. Resected and retrieved. Recommendation: - Repeat colonoscopy in 5 years for surveillance. - Continue present medications. Procedure Code(s): --- Professional --- 37789, Colonoscopy, flexible; with removal of tumor(s), polyp(s), or other lesion(s) by snare technique CPT copyright 2017 [employer]. All rights reserved. The codes documented in this report are preliminary and upon robotics mechanic review may be revised to meet current compliance requirements. Jb Sevilla DO 09/14/2022 8:55:43 AM This report has been signed electronically. Number of Addenda: 0 Note Initiated On: 09/14/2022 8:16 AM
--- NOTE | 2022-09-14 08:57 | OP.CCLET_ITS ---
09/14/2022 Juana Villatoro [address] [place] [address] Re : Colonoscopy procedure for Charlotte Crowley Dear Dr. Villatoro This procedure was performed on Wednesday, September 14, 2022. My impressions and recommendations are as follows: Impressions : - Non-bleeding external and internal hemorrhoids. - Diverticulosis in the recto-sigmoid colon and in the sigmoid colon. - Four 1 to 2 mm polyps in the sigmoid colon, in the descending colon and at the hepatic flexure, removed with a cold snare. Resected and retrieved. Recommendations : - Repeat colonoscopy in 5 years for surveillance. - Continue present medications. My findings are described in the full procedure note, which is enclosed. If I can be of further assistance, please feel free to contact me at . Sincerely, Jb Sevilla, 09/14/2022 8:55:43 AM This report has been signed electronically.
[2022-09-14 09:00] VITALS: BP 102/70; BP 114/80; PULSE 50; RESP 12; O2SAT 95
[2022-09-14 09:05] VITALS: BP 108/66; BP 114/80; PULSE 52; RESP 18; O2SAT 95
[2022-09-14 09:09] VITALS: BP 108/54; BP 114/80; PULSE 53; RESP 12; TEMP 36.8; O2SAT 95
[2022-09-14 09:26] VITALS: BP 114/80
== END 2022-09-14 09:51 | disposition home or self-care (01) ==
LOC: EN 06:37 → AC 06:38
PROVIDERS: PCP Internal Medicine; Referring Provider Internal Medicine; Visit Provider Internal Medicine Gastroenterology
PROC: 0DJD8ZZ Inspection of Lower Intestinal Tract, Via Natural or Artificial Opening Endoscopic (ICD-10-PCS; CPT 45378; principal; 2022-09-14 07:55)
DX: Z12.11 Encounter for screening for malignant neoplasm of colon (principal); I48.91 Unspecified atrial fibrillation; D12.5 Benign neoplasm of sigmoid colon; D12.3 Benign neoplasm of transverse colon; D12.4 Benign neoplasm of descending colon; K64.1 Second degree hemorrhoids; K64.4 Residual hemorrhoidal skin tags; K57.30 Diverticulosis of large intestine without perforation or abscess without bleeding; E78.00 Pure hypercholesterolemia, unspecified; Z87.891 Personal history of nicotine dependence; Z79.01 Long term (current) use of anticoagulants; Z79.899 Other long term (current) drug therapy
CPT/HCPCS: 45385; 36416; 85610; 88305; J7120; J2405

== ENCOUNTER 2023-04-10 06:40 | Outpatient (RCR) | payer MEDICARE, OTHER, SELFPAY ==
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
--- NOTE | 2023-06-29 09:26 | HP.PT.NRP ---
Patient Information Patient Information: PAM CURRY was seen in my office for initial evaluation on 04/10/23. The following Plan of Care was established for this patient: POC Established Initial Frequency: 2x /Week Initial Duration: 4 Weeks Anticipated Interventions Patient/Client Instruction: Educate patient on: Benefits of Fitness Program Therapeutic Exercise to Include: Strength training, Endurance training, Balance training, Coordination, Agility training, Body mechanics, Postural training, Flexibilty training, Gait and locomotor training, Neuromotor development, Passive ROM, Active ROM and Dynamic Lumbar Stabilization For the Purpose of:: To improve muscle performance and motor function Functional Training to Include: Gait training Cryotherapy (ice pack, ice massage): Yes Thermo therapy (hot pack): Yes Last Seen Last Seen: This patient was last seen in our office . Pertinent comments regarding their Physical therapy will appear below: Patient is continuing home exercise program and appropriate to be d/c from PT At this point I will be discontinuing this patient from physical therapy. I would be happy to see this patient again in the future if found appropriate by the physician. Thank you! Marilin Nava DPT Balance/Gait/Functional tests Balance/Special Test Scores Lower Extremity Functional Score: 20
== END 2023-04-10 19:00 | disposition home or self-care (01) ==
LOC: PT 06:40
PROVIDERS: PCP Internal Medicine; Referring Provider Physician Assistant; Visit Provider Physician Assistant
DX: S82.401D Unspecified fracture of shaft of right fibula, subsequent encounter for closed fracture with routine healing (principal)
CPT/HCPCS: 97110; 97161

== ENCOUNTER → 2023-06-01 | Outpatient (CLI) | payer MEDICARE, OTHER, SELFPAY ==
--- NOTE | 2023-06-01 12:53 | ECHOD_ITS ---
Reason For Study: ATRIAL FIBRILLATION Procedure This was a 2D Doppler, Color Flow transthoracic echocardiogram. Exam performed in department. Left Ventricle Normal LV size. Left ventricular systolic function is normal. The estimated ejection fraction is 60 %. No regional wall motion abnormalities noted. Right Ventricle Normal RV size. Normal systolic function. Atria Normal left atrium. Normal right atrium. Mitral Valve Normal mitral valve. Tricuspid Valve Normal tricuspid valve. Mild tricuspid valve insufficiency. Pulmonary artery systolic pressure is 28 mmHg. Aortic Valve Normal aortic valve. Trisinus/trileaflet aortic valve. Pulmonic Valve Normal pulmonic valve. Great Vessels Normal aortic root. The pulmonary artery is normal size. Normal inferior vena cava. Pericardium/Pleural No pericardial effusion. MMode/2D Measurements & Calculations LVIDd: 4.7 cm IVSd: 1.1 cm Ao root diam: 3.5 cm LVIDs: 3.0 cm LVPWd: 1.1 cm RVDd: 3.4 cm FS: 36.5 % LAV(MOD-bp): 68.5 ml LVAd ap4: 34.6 cm2 LVAd ap2: 32.1 cm2 LAV(MOD-bp) Indexed: 34.2 ml/m2 LVLd ap4: 8.6 cm LVLd ap2: 8.2 cm LAV(MOD-sp2): 63.3 ml EDV(MOD-sp4): 115.7 ml EDV(MOD-sp2): 106.0 ml LAV(MOD-sp4): 63.6 ml EDV(sp4-el): 118.8 ml EDV(sp2-el): 106.0 ml LVAs ap4: 15.6 cm2 LVAs ap2: 18.2 cm2 LVLs ap4: 6.8 cm LVLs ap2: 6.8 cm ESV(MOD-sp4): 31.2 ml ESV(MOD-sp2): 42.2 ml ESV(sp4-el): 30.4 ml ESV(sp2-el): 41.4 ml EF(MOD-sp4): 73.0 % EF(MOD-sp2): 60.2 % EF(sp4-el): 74.4 % SV(MOD-sp4): 84.5 ml SV(MOD-sp2): 63.8 ml SV(sp4-el): 88.4 ml LA dimension(2D): 5.0 cm LA A4 area: 21.6 cm2 RA A4 area: 22.5 cm2 TAPSE: 2.1 cm Doppler Measurements & Calculations MV E max henok: 113.1 cm/sec Lat Peak E' Henok: 12.0 cm/sec Med Peak E' Henok: 8.1 cm/sec E/E' lat: 9.4 E/E' med: 13.9 Ao V2 max: 131.5 cm/sec LV V1 max: 125.9 cm/sec PA V2 max: 126.5 cm/sec Ao max P.9 mmHg LV V1 max P.3 mmHg PA V2 mean: 96.0 cm/sec Ao V2 mean: 88.5 cm/sec LV V1 mean P.2 mmHg Ao mean P.6 mmHg LV V1 mean: 82.4 cm/sec Ao V2 VTI: 27.4 cm LV V1 VTI: 27.3 cm AV (velocity ratio): 0.99 TR max henok: 246.1 cm/sec TR max P.2 mmHg ECHO/Echo Complete Interpretation Summary Normal LV size. Left ventricular systolic function is normal. The estimated ejection fraction is 60 %. Structurally normal valves. Ordering Physician: Juana Villatoro Referring Physician: Juana Villatoro Performed By: Kymberly Manzo, KACICS, RVT
== END | disposition home or self-care (01) ==
LOC: CVS 12:52
PROVIDERS: PCP Internal Medicine; Referring Provider Internal Medicine; Visit Provider Internal Medicine
DX: I48.91 Unspecified atrial fibrillation (principal); R06.02 Shortness of breath
CPT/HCPCS: 93306

== ENCOUNTER → 2023-06-13 08:46 | Outpatient (REF) | payer SELFPAY | LOC: CVS 08:46 | PROVIDERS: PCP Internal Medicine | DX: Z00.00 Encounter for general adult medical examination without abnormal findings (principal) ==

== ENCOUNTER → 2023-10-24 | Outpatient (CLI) | payer MEDICARE, OTHER, SELFPAY ==
--- NOTE | 2023-10-27 13:37 | STRESSREP_ITS ---
Stress Test Report Date: 10/24/2023 Procedure: Pharmacologic stress nuclear imaging study Indications: Abnormal test Consent: Per the patient Procedure: The patient underwent pharmacologic (Regadenoson) evaluation with a peak heart rate of 75 beats per minute (51%predicted maximal heart rate) and a peak blood pressure of 118/80 mmHg. The baseline ECG demonstrated atrial fibrillation. EKG during lexiscan infusion revealed no evidence of significant ischemia. EKG post infusion revealed no evidence of significant ischemia [There were no cardiac dysrhythmias pretest, during pharmacologic infusion, or recovery]. [There was no complaint of chest discomfort during pharmacologic infusion or recovery]. The examination was discontinued secondary to completion of protocol. Impression: 1. Lexiscan stress test test is negative for Lexiscan infusion induced EKG changes of ischemia. 2. Lexiscan stress test test is negative for Lexiscan infusion induced chest pain. 3. Results of the nuclear portion of the test is as below Myocardial perfusion imaging study: Technique: The patient was injected with 11.6 millicuries of technetium 99m Cardiolite and subsequently rest SPECT Cardiolite nuclear imaging was obtained in the horizontal long, vertical long, and short axis views. The patient underwent pharmacologic [Regadenoson 0.4mg] evaluation. Please see above for details. The patient was injected with 34.3 millicuries of technetium 99m Cardiolite and subsequently stress SPECT Cardiolite nuclear imaging was obtained in the hori zontal long, vertical long, and short axis views. A gated Cardiolite study at peak stress was obtained. Interpretation: Rest and stress SPECT Cardiolite nuclear imaging status post realignment, n ormalization, and attenuation correction demonstrate no evidence of significant ischemia or infarction. Gated images reveal no significant regional wall motion abnormalities. The reported LVEF is 68%. Impression: 1. There is no evidence of significant ischemia or infarction. 2. Estimated ejection fraction is 68%. This note was generated with [employer] software. It may contain incorrect words, spelling, and punctuation that were not noted in checking the note before signing.
== END | disposition home or self-care (01) ==
LOC: CVS 06:07
PROVIDERS: PCP Internal Medicine; Referring Provider Internal Medicine; Visit Provider Internal Medicine
DX: R07.9 Chest pain, unspecified (principal); R94.39 Abnormal result of other cardiovascular function study
CPT/HCPCS: 78452; 93017; A9500; A4216; J2785

== ENCOUNTER → 2023-12-25 | Outpatient (CLI) | payer MEDICARE, OTHER, SELFPAY | END | disposition home or self-care (01) | LOC: PSN 11:50 | PROVIDERS: PCP Internal Medicine; Referring Provider Internal Medicine Cardiovascular Disease; Visit Provider Internal Medicine Cardiovascular Disease | DX: Z12.11 Encounter for screening for malignant neoplasm of colon (principal) | CPT/HCPCS: 93225; 93226 ==

== ENCOUNTER → 2025-04-02 | Outpatient (CLI) | payer MEDICARE, OTHER, SELFPAY ==
[2025-04-02 15:30] LABS: Anion Gap 11 (5-15); BUN 28 mg/dL (4-19); BUN/Creat Ratio 35.5 RATIO (10-20); Calcium,Total 9.7 mg/dL (7.6-11.0); Carbon Dioxide 27.2 mmol/L (21.0-32.0); Chloride 103 mmol/L (98-108); Glucose 97 mg/dL (70-99); Potassium 4.6 mmol/L (3.3-5.1)
== END | disposition home or self-care (01) ==
PROVIDERS: PCP Internal Medicine; Referring Provider Internal Medicine Cardiovascular Disease; Visit Provider Internal Medicine Cardiovascular Disease
DX: I71.21 Aneurysm of the ascending aorta, without rupture (principal)
CPT/HCPCS: 36415; 80048

== ENCOUNTER → 2025-04-17 | Outpatient (CLI) | payer MEDICARE, OTHER, SELFPAY ==
--- NOTE | 2025-04-17 16:10 | CT_ITS ---
EXAM: CT Chest With Intravenous Contrast CLINICAL INDICATION: ASCENDING AORTIC ANEURSYM TECHNIQUE: Axial computed tomography images of the chest with intravenous contrast. This CT exam was performed using one or more of the following dose reduction techniques: automated exposure control, adjustment of the mA and/or kV according to patient size, and/or use of iterative reconstruction technique. COMPARISON: No relevant prior studies available. FINDINGS: LUNGS AND PLEURAL SPACES: Calcified granuloma of the right middle lobe. Mild emphysematous lung changes. No suspicious pulmonary nodules. Repeat CT in 12 months is recommended. No consolidation. No significant effusion. No pneumothorax. HEART: Calcified coronary arterial disease. No cardiomegaly. No significant pericardial effusion. BONES/JOINTS: Unremarkable. No acute fracture. SOFT TISSUES: Unremarkable. VASCULATURE: The ascending thoracic aorta is ectatic measuring 4.3 cm in maximum diameter. LYMPH NODES: Unremarkable. No enlarged lymph nodes. LIVER: Fatty infiltration of the liver. CT/Chest WITH Contrast IMPRESSION: 1. The ascending thoracic aorta is ectatic measuring 4.3 cm in maximum diamete r. 2. Mild emphysematous lung changes. No suspicious pulmonary nodules. Repeat CT in 12 months is recommended. Reading Location: [id number]
== END | disposition home or self-care (01) ==
LOC: CT 16:06
PROVIDERS: PCP Internal Medicine; Referring Provider Internal Medicine Cardiovascular Disease; Visit Provider Internal Medicine Cardiovascular Disease
DX: I71.21 Aneurysm of the ascending aorta, without rupture (principal)
CPT/HCPCS: 71260; Q9967